=== PATIENT | female | born 1940 | race Asian ===

== ENCOUNTER 2021-10-13 14:15 | Outpatient (REF) | payer MEDICARE, MEDICAID, SELFPAY ==
[2021-10-13 14:17] LABS: Urine Cytology See Pathology rpt
== END 2021-10-13 14:16 | disposition home or self-care (01) ==
LOC: HO.LNP 14:15
PROVIDERS: Visit Provider Internal Medicine
DX: R31.9 Hematuria, unspecified (principal)
CPT/HCPCS: 88112

== ENCOUNTER 2021-10-14 07:28 | Outpatient (REF) | payer MEDICARE, MEDICAID, SELFPAY ==
[2021-10-14 11:17] LABS: MANUAL DIFF FLAG NO
[2021-10-14 11:32] LABS: Basophils Percent Auto 0.6 % (0-2); Eosinophils Absolute Auto 0.1 X10*3/uL (0.0-0.4); Eosinophils Percent Auto 3.6 % (0-4); Hematocrit 35.4 % (37.0-47.0); Hemoglobin 11.5 g/dl (12.0-16.0); Lymphocytes Absolute Auto 1.6 X10*3/uL (1.2-4.9); Lymphocytes Percent Auto 45.3 % (20-40); Mean Corpuscular HGB Conc 32.5 g/dl (31.0-35.0); Mean Corpuscular Hemoglobin 29.3 pg (27.0-33.0); Mean Corpuscular Volume 90.3 fL (80.0-98.0); Mean Platelet Volume 8.5 fL (9.4-12.3); Monocytes Absolute Auto 0.6 X10*3/uL (0.1-1.2); Monocytes Percent Auto 17.6 % (2-11); Neutrophils Absolute Auto 1.2 x10*3/uL (2.0-8.3); Neutrophils Percent Auto 32.9 % (45-73); Platelet Count 263 X10*3/uL (160-400); Red Blood Count 3.92 X10*6/uL (4.20-5.50); Red Cell Distribution Width 13.5 % (11.0-16.0); White Blood Count 3.6 X10*3/uL (4.8-10.8)
[2021-10-14 11:43] LABS: Alanine Aminotransferase 9 U/L (0-31); Albumin Level 4.2 g/dL (3.5-5.0); Alkaline Phosphatase 70 U/L (39-117); Anion Gap 12 (12-20); Aspartate Amino Transferase 19 U/L (5-31); Bilirubin Total 0.6 mg/dL (0.0-1.0); Blood Urea Nitrogen 11 mg/dL (9-16); Calcium 9.6 mg/dL (8.4-10.2); Carbon Dioxide 27 mmol/L (22-29); Chloride 98 mmol/L (96-108); Estimated Glomerular Filt Rate > 60; Glucose Fasting 96 mg/dL (60-99); Potassium 3.8 mmol/L (3.3-5.1); Sodium 133 mmol/L (135-145); Total Protein 7.2 g/dL (6.5-8.0)
== END 2021-10-14 07:29 | disposition home or self-care (01) ==
LOC: HO.HMGCLDS 07:28
PROVIDERS: PCP Internal Medicine; Visit Provider Internal Medicine
DX: R31.9 Hematuria, unspecified (principal)
CPT/HCPCS: 36415; 80053; 85025

== ENCOUNTER → 2022-03-30 14:34 | Outpatient (BNVA) | payer MEDICARE, MEDICAID, SELFPAY | PROVIDERS: PCP Internal Medicine; Referring Provider Internal Medicine; Visit Provider Internal Medicine Cardiovascular Disease | DX: R00.2 Palpitations (principal) | CPT/HCPCS: 93005; 99202 ==

== ENCOUNTER → 2022-06-01 11:04 | Outpatient (REF) | payer MEDICARE, MEDICAID, SELFPAY ==
--- NOTE | 2022-06-01 11:12 | HM_ITS ---
* Total monitoring time 6 days and 23 hours. * Underlying rhythm is sinus. Average rate 78/Min. Range 64 to 117/Min. * No atrial fibrillation or flutter or AV blocks or pauses. * Frequent supraventricular ectopy. Maupin of 1.7%. * Extremely rare ventricular ectopy with minimal burden. * No patient events. MTDD
== END ==
LOC: HO.CARD 11:04
PROVIDERS: PCP Internal Medicine; Visit Provider Internal Medicine Cardiovascular Disease
DX: R00.2 Palpitations (principal)
CPT/HCPCS: 93242

== ENCOUNTER → 2022-07-07 12:52 | Outpatient (REF) | payer OTHER, SELFPAY ==
--- NOTE | 2022-07-07 12:55 | CA_ITS ---
Transthoracic Echocardiogram Patient (Last, First, Middle): Claudia Mario, Gender: Female Date of : 1940 Age: 81 Procedure Date: 07/07/2022 Procedure Type: Transthoracic Echocardiogram Location: OP Height: 152.4 cm Weight: 52.16 kg BSA: 1.48 m2 Heart Rate: 87 bpm BP: 132 / 78 mmHg Front End Alignment Specialist: AMADO Referring MD: Alfred Paz MD Symptoms: R00.2 - Palpitations Study Quality: Adequate ECG Rhythm: Sinus Conclusions: - The left ventricular systolic function is normal. The calculated ejection fraction is 65% by biplane method. - No obvious valvular pathology seen on this study. Findings Left Ventricle Normal left ventricular cavity size. There is normal left ventricular wall thickness. The left ventricular systolic function is normal. The calculated ejection fraction is 65% by biplane method. There is no evidence of regional wall motion abnormalities. Diastolic function is normal for age. Right Ventricle Normal right ventricular cavity size and systolic function. Atria Both atria are normal in size. Aortic Valve There is a normal trileaflet aortic valve. There is mild thickening of the aortic valve. There is no aortic valve stenosis. Trace to mild aortic regurgitation. Mitral Valve There is mild anterior mitral leaflet thickening. There is no mitral valve regurgitation. There is no mitral valve stenosis. Pulmonic Valve The pulmonic valve is likely normal. Tricuspid Valve There is trace tricuspid valve regurgitation. There is no evidence of pulmonary hypertension. Great Vessels The asc aorta is normal in size. Venous The inferior vena cava is normal in size and collapses greater than 50% with inspiration. Pericardium/Pleural There is no evidence of pericardial effusion. Prior Study Comparison No prior study available for comparison. Recommendations, Care & Conclusions No obvious valvular pathology seen on this study. Measurements 2D Linear Measurements IVSd: 1.08 0.6-0.9/0.6-1.0 cm LVIDd: 3.91 3.9-5.3/4.2-5.9 cm LVIDd Index: 2.64 2.4-3.2/2.2-3.1 cm/m2 LVIDs: 2.55 2.0-3.6 cm LVPWd: 0.97 0.7-1.1 cm LA Diam: 2.70 2.7-3.8/3.0-4.0 cm LAIDs Index: 1.82 1.5-2.3 cm/m2 LV Mass: 158.45 67-162/88-224 g LV Mass Index: 107.06 43-95/49-115 g/m2 LVOT Diam: 2.00 3.0+(-)1.3 cm 2D Systolic Function EF 4C: 61.70 >55% EF 2C: 65.40 >55% EF BiP: 64.80 >55% Mitral Valve MV Pk E: 0.66 MV PK A: 0.92 MV Decel Time: 219.00 E/A: 0.70 E'Lateral: 5.77 E'Medial: 5.22 E/E' Med: 12.70 E/E' Lat: 11.50 PHT: 64.00 MVA PHT: 3.44 Decel Falls: 3.01 Aortic Valve AoV Pk Denilson: 1.86 AoV Mn Denilson: 1.23 AoV VTI: 0.35 AoV Pk Grad: 14.00 Aov Mn Grad: 7.00 AASHISH Cont.VTI: 2.77 AI Pk Denilson: 4.51 AI Falls: 3.23 AI Alias Denilson: 0.41 ERO - PISA: 9.00 LVOT LVOT Pk Denilson: 1.42 LVOT Mn Denilson: 0.97 LVOT VTI: 0.30 LVOT Pk Grad: 8.00 LVOT Mn Grad: 4.00 LVOT Diam: 2.00 LVOT Area: 3.14 Diastolic Function MV Pk E: 0.66 MV Pk A: 0.92 E/A: 0.70 E'Medial: 5.22 E/E' Med: 12.70 E' Laterial: 5.77 E/E' Lat: 11.50 Right Ventricle TAPSE (mm): 20.00 TVS' Denilson: 13.20 Tricuspid Valve RA Press: 3.00 Great Vessels Aorta Sinus of Valsalva: 2.70 2.0-3.5 cm Ao Asc: 3.50 2.1-3.4 cm Pulmonary Valve PV Pk Denilson: 1.39 Peak PV Grad: 8.00 Updated in Other Vendor System with Status of Final Kelvin Carty MD electronically signed on 07/08/2022 10:35:13 AM with status of Final
== END ==
LOC: HO.CARD 12:52
PROVIDERS: PCP Internal Medicine; Visit Provider Internal Medicine Cardiovascular Disease
DX: R00.2 Palpitations (principal)
CPT/HCPCS: 93306

== ENCOUNTER 2024-05-18 13:30 | Outpatient (AMB) | payer OTHER, SELFPAY ==
--- NOTE | 2024-05-18 13:36 | MHC.PC.OV ---
Vital Signs 05/18/24 13:40 Height 5 ft 4 in Weight 128 lb BMI 22.0 BP 128/82 Blood Pressure Location Lt brachial Position Sitting Pulse 82 Pulse Source Pulse Oximeter Pulse Oximetry (%) 97 Oxygen Delivery Method Room Air Intake Visit Reasons: [facility] fx Rt shoulder request PT Intake Note: Pt is here today f/u [facility] Rt shoulder fx back in February needs orders Accompanied by: Daughter (Manny) Allergies amoxicillin Adverse Reaction (Verified 05/18/24 13:46) Rash aspirin Adverse Reaction (Verified 05/18/24 13:46) Stomach Upset Medication List - Last Reconciled 05/18/24 by Cherry Casey MD cholecalciferol (vitamin D3) 25 mcg PO DAILY ferrous sulfate 324 mg PO DAILY multivitamin 1 tab PO DAILY omega-3 fatty acids 500 mg PO DAILY omeprazole 40 mg PO DAILY Tobacco use date assessed: 05/18/24 Fall risk assessment: 1 Fall in past year Last assessed Fall Risk: 05/18/24 Dental Screening Dental Screen Date: 05/18/24 Did you have a dental visit in the last 12 months?: No Did you have a dental problem in the last 6 months where you did not have access to dental care?: No Was dental information given to patient?: Patient declined HPI [facility] f[facility] Rt shoulder request PT HPI Details 83-year-old lady here today still complaining of pain when lifting right shoulder more than 90 degrees in all direction. She had a fall hitting her shoulder on the door last February 2024 and sustained a closed fracture of surgical neck of right humerus. 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 Requesting referral for physical therapy, but would like to have it in home as patient has been having difficulty with ambulation, and getting in and out of her house with steps to maneuver, is extremely hard for patient and daughter, who has been assisting her. [facility] Medical History (Updated 05/18/24 @ 14:01 by Cherry Casey MD) Gait instability Fracture of surgical neck of right humerus Endometrial cancer Atypical nevus of abdominal wall Intermittent palpitations Heartburn Hematuria Surgical History No pertinent past surgical history Social History Housing: Other Housing Other:: lives with son Patient Tobacco Use Status: Never used Tobacco e-Cigarette/Vaping Use: Never Used service: No Current occupational status: retired Cognitive needs: No Hearing needs: No Vision needs: Yes Questionnaire PHQ-9 Over the last 2 weeks, how often have you been bothered by any of the following problems? 1. Little interest or pleasure in doing things: not at all 2. Feeling down, depressed, or hopeless: not at all 3. Trouble falling or staying asleep, or sleeping too much: not at all 4. Feeling tired or having little energy: not at all 5. Poor appetite or overeating: not at all 6. Feeling bad about yourself - or that you are a failure or have let yourself or your family down: not at all 7. Trouble concentrating on things, such as reading the newspaper or watching television: not at all 8. Moving or speaking so slowly that other people could have noticed. Or the opposite - being so fidgety or restless that you have been moving around a lot more than usual: not at all 9. Thoughts that you would be better off or of hurting yourself in some way: not at all Total score: 0 Depression Screening Interpretation: Negative Depression Screening Done: Yes 19907 - PHQ-9 Billing: Yes Source: Developed by Drs. Christopher Astudillo, Annette Osorio, Naveed Marquez and colleagues, with an educational angela from [employer]. Thrive Questionnaire Date Thrive assessed: 05/18/24 I am a: Patient What is your living situation today?: I have a steady place to live Within the past 12 months, did the food you bought not last and you didn't have the money to get more?: I choose not to answer this question Within the past 12 months, did you worry whether your food would run out before you got money to buy more?: Never true Do you have trouble paying for medicines?: No Do you have trouble getting transportation to medical appointments?: No Do you have trouble paying your heating and electricity bill?: No Do you have trouble taking care of your child, family member or friend?: No Do you have trouble with day-to-day activities such as bathing, preparing meals, shopping, managing finances, etc.?: No Are you currently unemployed and looking for a job?: No Are you interested in more education?: No Please select the resources that you would like help with: Housing/Care Home Currently or been in a relationship where the following occur: No concerns reported THRIVE Score: 0 AUDIT C Alcohol Use Questionnaire (AUDIT-C) 1. How often do you have a drink containing alcohol?: Never Total Score: 0 CALVIN-7 AMB Questionnaire CALVIN-7 Date CALVIN - 7 assessed: 05/18/24 Feeling nervous, anxious, or on edge: 0 = Not at all Not being able to stop or control worryin = Not at all Worrying too much about different things: 0 = Not at all Trouble relaxin = Not at all Being so restless that it is hard to sit still: 0 = Not at all Becoming easily annoyed or irritable: 0 = Not at all Feeling afraid as if something awful might happen: 0 = Not at all Total CALVIN-7 score (0-4 normal; 5-9 mild; 10-14 moderate; 15-21 severe): 0 Source: Developed by Drs. Christopher Astudillo, Anntete Osorio, Naveed Marquez and colleagues, with an educational angela from [employer]. Review of Systems Const Reports no additional complaints and Denies headache(s) ENT Denies headache(s) and Reports disequilibrium Card Reports no additional complaints Resp Reports no additional complaints Reports no additional complaints Musc Reports as per HPI Skin/Breast Denies lesions and Denies rash Neuro Denies headache(s) and Reports disequilibrium Physical exam (Primary Care) Vital Signs: Last Vital Signs Pulse 82 05/18/24 13:40 BP 128/82 05/18/24 13:40 Pulse Ox 97 05/18/24 13:40 Oxygen Delivery Method Room Air 05/18/24 13:40 BMI result Body Mass Index 22.0 Tobacco/Smoking Status: Tobacco use Status Tobacco use date assessed 05/18/24 05/18/24 13:46 Patient Tobacco Use Status Never used Tobacco 05/18/24 13:38 e-Cigarette/Vaping Use Never Used 08/01/24 13:38 PHQ-9: PHQ-9 Score PHQ-9: Total score 0 05/18/24 14:21 Depression Screening Interpretation: Negative Thrive Assessment: Date of Thrive Assessment Date Thrive assessed 05/18/24 05/18/24 13:46 Currently or been in a relationship where the following occur: No concerns reported Const Other: Patient currently on a wheelchair accompanied by daughter General: comfortable, no acute distress, alert and awake Nutritional Appearance: average body habitus HENOR Head: Yes normocephalic and Yes atraumatic Ears: external ears normal and TM's normal bilaterally Mouth: Normal oral and palatal mucosa present, oropharynx normal and moist mucous membranes Eyes General: appearance normal, both eyes and all related structures Neck Neck: Yes no lymphadenopathy and Yes supple Thyroid: Thyroid normal Resp Auscultation: clear to auscultation bilaterally Cardio Other: S1-S2 present regular rate and rhythm GI Palpation (GI): Soft to palpation, nontender, no guarding and no masses Skin General skin exam: no rashes or lesions noted Extrem Other: Decreased range of motion of right shoulder joint, able to only abduct right arm approximately 90 degrees, slight tenderness on palpation over right AC joint, no mass or tenderness on palpation over right upper arm Assessment and Plan Assessment & Plan (1) Fracture of surgical neck of right humerus: Code(s): S42.211A - Unspecified displaced fracture of surgical neck of right humerus, initial encounter for closed fracture Plan: Referred to [facility] for evaluation for home OT/PT after recent fall where she sustained displaced fracture of surgical neck of right humerus, still with ongoing pain and decreased range of motion her right shoulder and upper arm (2) Gait instability: Code(s): R26.81 - Unsteadiness on feet Plan: Referred to [facility] to see if patient will qualify for home OT, as patient has been having a difficult time getting out of her house due to gait instability and weakness Orders: [facility]errals [facility] Referral R26.81 - Unsteadiness on feet, S42.211A - Unspecified displaced fracture of surgical neck of right humerus, initial encounter for closed fracture, S42.351D - Displaced comminuted fracture of shaft of humerus, right arm, subsequent encounter for fracture with routine healing Coding Level of Care Code Est Pt Level 4 (79254) Diagnoses Fracture of surgical neck of right humerus S42.211A Gait instability R26.81
[2024-05-18 13:40] VITALS: BP 128/82; PULSE 82; O2SAT 97; BMI 22.0
== END 2024-05-18 14:54 | disposition home or self-care (01) ==
PROVIDERS: PCP Internal Medicine; Visit Provider Internal Medicine
DX: S42.211A Unspecified displaced fracture of surgical neck of right humerus, initial encounter for closed fracture (principal); R26.81 Unsteadiness on feet
CPT/HCPCS: 99214

== ENCOUNTER 2024-11-21 12:53 | Outpatient (AMB) | payer OTHER, SELFPAY ==
[2024-11-21 13:06] VITALS: BP 100/60; PULSE 90; TEMP 36.7; O2SAT 99; BMI 21.5
--- NOTE | 2024-11-21 13:06 | MHC.PC.OV ---
Vital Signs 11/21/24 13:06 Height 5 ft 4 in Weight 125 lb BMI 21.5 BP 100/60 Blood Pressure Location Rt brachial Position Sitting Pulse 90 Pulse Source Pulse Oximeter Temp 98.0 F Temp Source Oral Pulse Oximetry (%) 99 Oxygen Delivery Method Room Air Intake Visit Reasons: f/u constipation Intake Note: Pt is here today to f/u constipation Allergies amoxicillin Adverse Reaction (Verified 11/21/24 13:16) Rash aspirin Adverse Reaction (Verified 11/21/24 13:16) Stomach Upset Medication List - Last Reconciled 11/21/24 by Cherry Casey MD cholecalciferol (vitamin D3) 25 mcg PO DAILY ferrous sulfate 324 mg PO DAILY multivitamin 1 tab PO DAILY omega-3 fatty acids 500 mg PO DAILY omeprazole 40 mg PO DAILY Tobacco use date assessed: 11/21/24 Fall risk assessment: 1 Fall in past year Last assessed Fall Risk: 11/21/24 Dental Screening Dental Screen Date: 11/21/24 Did you have a dental visit in the last 12 months?: No Did you have a dental problem in the last 6 months where you did not have access to dental care?: No Was dental information given to patient?: No HPI f/u constipation HPI Details - The patient is an 84-year-old femaleHere today accompanied by daughter complaining of constipation and nutritional concerns. - Persistent constipation has been an issue since a hospital admission. The issue is complicated by limited mobility and insufficiency of dietary fiber and liquids. - Limited dietary intake consists mostly of soups and occasional solid foods like rice porridge. - There is impaired mobility due to fatigue, and attempts to remain active are hindered by the patient's overall weakness. - Iron supplementation, required due to cancer or other reasons, is exacerbating constipation. - The patient experiences nausea predominantly during afternoon and evening, interfering with meal consumption. - The patient has been receiving hormonal therapy for endometrial cancer. - The patient experiences limited mobility and relies on a walker but is often too fatigued to move independently. [facility] Medical History (Updated 11/21/24 @ 13:33 by Cherry Casey MD) Constipation Gait instability Fracture of surgical neck of right humerus Endometrial cancer Atypical nevus of abdominal wall Intermittent palpitations Heartburn Hematuria Surgical History No pertinent past surgical history Social History Housing: Other Housing Other:: lives with son Patient Tobacco Use Status: Never used Tobacco e-Cigarette/Vaping Use: Never Used service: No Current occupational status: retired Cognitive needs: No Hearing needs: No Vision needs: Yes Questionnaire PHQ-9 Over the last 2 weeks, how often have you been bothered by any of the following problems? 1. Little interest or pleasure in doing things: not at all 2. Feeling down, depressed, or hopeless: several days 3. Trouble falling or staying asleep, or sleeping too much: several days 4. Feeling tired or having little energy: more than half the days 5. Poor appetite or overeating: nearly every day 6. Feeling bad about yourself - or that you are a failure or have let yourself or your family down: not at all 7. Trouble concentrating on things, such as reading the newspaper or watching television: not at all 8. Moving or speaking so slowly that other people could have noticed. Or the opposite - being so fidgety or restless that you have been moving around a lot more than usual: not at all 9. Thoughts that you would be better off or of hurting yourself in some way: not at all Total score: 7 Depression Screening Interpretation: Negative Depression Screening Done: Yes Source: Developed by Drs. Chrisotpher Astudillo, Annette Osorio, Naveed Marquez and colleagues, with an educational angela from [employer]. Thrive Questionnaire Date Thrive assessed: 05/18/24 I am a: Parent/Caregiver What is your living situation today?: I have a steady place to live Within the past 12 months, did the food you bought not last and you didn't have the money to get more?: I choose not to answer this question Within the past 12 months, did you worry whether your food would run out before you got money to buy more?: Never true Do you have trouble paying for medicines?: No Do you have trouble getting transportation to medical appointments?: No Do you have trouble paying your heating and electricity bill?: No Do you have trouble taking care of your child, family member or friend?: No Do you have trouble with day-to-day activities such as bathing, preparing meals, shopping, managing finances, etc.?: No Are you currently unemployed and looking for a job?: No Are you interested in more education?: No Please select the resources that you would like help with: None Currently or been in a relationship where the following occur: No concerns reported THRIVE Score: 0 AUDIT C Alcohol Use Questionnaire (AUDIT-C) 1. How often do you have a drink containing alcohol?: Never Total Score: 0 CALVIN-7 AMB Questionnaire CALVIN-7 Date CALVIN - 7 assessed: 05/18/24 Feeling nervous, anxious, or on edge: 0 = Not at all Not being able to stop or control worryin = Not at all Worrying too much about different things: 0 = Not at all Trouble relaxin = Not at all Being so restless that it is hard to sit still: 0 = Not at all Becoming easily annoyed or irritable: 0 = Not at all Feeling afraid as if something awful might happen: 0 = Not at all Total CALVIN-7 score (0-4 normal; 5-9 mild; 10-14 moderate; 15-21 severe): 0 Source: Developed by Drs. Christopher Astudillo, Annette Osorio, Naveed Marquez and colleagues, with an educational angela from [employer]. Review of Systems Const All systems reviewed & are unremarkable except as noted in HPI and below Physical exam (Primary Care) Vital Signs: Last Vital Signs Temp 98.0 F 11/21/24 13:06 Pulse 90 11/21/24 13:06 BP 100/60 11/21/24 13:06 Pulse Ox 99 11/21/24 13:06 Oxygen Delivery Method Room Air 11/21/24 13:06 BMI result Body Mass Index 21.5 Tobacco/Smoking Status: Tobacco use Status Tobacco use date assessed 11/21/24 11/21/24 13:12 Patient Tobacco Use Status Never used Tobacco 11/21/24 13:07 e-Cigarette/Vaping Use Never Used 11/21/24 13:07 Depression Screening Interpretation: Negative Thrive Assessment: Date of Thrive Assessment Date Thrive assessed 05/18/24 11/21/24 13:07 Currently or been in a relationship where the following occur: No concerns reported Const Other: Patient currently on a wheelchair accompanied by daughter General: comfortable, no acute distress, alert and awake Nutritional Appearance: average body habitus [facility] Head: Yes normocephalic and Yes atraumatic Mouth: Normal oral and palatal mucosa present, oropharynx normal and moist mucous membranes Eyes General: appearance normal, both eyes and all related structures Neck Neck: Yes no lymphadenopathy and Yes supple Thyroid: Thyroid normal Resp Auscultation: clear to auscultation bilaterally Cardio Other: S1-S2 present regular rate and rhythm GI Palpation (GI): Soft to palpation, nontender, no guarding and no masses Back/Spine/Pelvis Other: POSITIVE KYPHOSIS Back: No back tenderness Skin General skin exam: no rashes or lesions noted Extrem Other: Decreased range of motion of right shoulder joint, able to only abduct right arm approximately 90 degrees, slight tenderness on palpation over right AC joint, no mass or tenderness on palpation over right upper arm Coding Level of Care Code Est Pt Level 4 (66423) Complex EM visit Add On G2211 Diagnoses Constipation K59.00 Endometrial cancer C54.1 Assessment & Plan Assessment & Plan (1) Constipation: Code(s): K59.00 - Constipation, unspecified Category: Medical Plan: Has already tried MiraLax and [id number] stool softeners which affords no improvement. Will try her on lactulose 10 g per 15 mL, to give 15 mL or 1 tbsp once a day as needed if no bowel movement after 3 days. Increase fluids, encouraged patient to be more active , to move around, return to clinic if no improvement of symptoms (2) Endometrial cancer: Comment: Followed by Dr. Kayli Solorio at [facility] oncology Code(s): C54.1 - Malignant neoplasm of endometrium Category: Medical Plan: CURRENTLY FOLLOWED AT [facility] Medications: New lactulose 10 grams (15 mL) PO DAILY PRN 3,785 mL 0RF constipation
--- OUTSIDE RECORDS SUMMARY | 2024-11-21 13:17 | XMS_ITS | Continuity of Care Document ---
Author Organization [facility] ter Address [address] [place] [id number]- Care Team Providers [employer] Sales Representative Name Role Phone Azam [facility] ( [phone] [place] [facility] [place] [id number] Date(s): 11/01/24 - 11/02/[address] [address]- Encounter Diagnosis Constipation(Final) - 11/02/24 Vomiting(Final) - 11/02/24 Gastroenteritis(Final) - 11/02/24 Discharge Disposition: A-D/C Home Attending Physician: Brigitte Victoria DO Admitting Physician: Brigitte Victoria DO Referring Physician: Not on Staff, Referring MD Encounter Type: Disch ES Allergies, Adverse Reactions, Alerts Substance Criticality Severity Reaction Reaction Severity Status aspirin High criticality Severe GI upset/st omach issues Active penicillins High criticality Severe severe rash Active Immunizations Given and Recorded Vaccine Date Status Refusal Reason SARS-CoV-2 (COVID-19) mRNA BNT-162b2 vac 10/20/21 Recorded Influenza Virus Vaccine (oldterm) 08/02/21 Recorde d Influenza Virus Vaccine (oldterm) 08/17/20 Recorde d tetanus/diphtheria/pertussis, acel(Tdap) 1 08/05/18 Given pneumococcal 13-valent vaccine 08/05/18 Given influenza virus vaccine, inactivated 2 08/05/18 Gi breann influenza virus vaccine, inactivated 09/01/17 Give n pneumococcal 23-valent vaccine 01/18/11 Given 1Result Comment: RIGHT LOWER DELTOID 2Result Comment: [facility] [id number] Problem List Condition Confirmation Course Effective Dates Status H ealth Status Informant Abdominal pain Confirmed Active Erosive gastritis Confirmed Active Anemia Confirmed Active Shortness of breath Confirmed Active Hyperlipidemia Confirmed Active Endometrial cancer Confirmed Active Results Radiology Reports * Exam Date Time Procedure Performing Provider Status 11/01/24 5:[address] Abd/Pelvis W/ IV Contrast Only Nataly Tilley; Auth (Verified) Notes: (CT Abd/Pelvis W/ IV Contrast Only) Reason For Exam: LLQ abdominal pain;Other: RESULT: CT Abd/Pelvis W/ IV Contrast Only CT Abd/Pelvis W/ IV Contrast Only Hx of Present Illness: Patient coming from home with her PCT, patient reports abdominal pain since last night with nausea and vomiting since 0800hrs this morning.; Reason: Other:; LLQ abdominal pain;Clinical Question(s): Diverticulitis; Order Comment: TECHNIQUE: Spiral CT through the abdomen and pelvis with IV contrast formatted in 3 planes. 75 cc of Isovue 300 was administered intravenously. This study was performed without oral contrast. Weight-based protocol using automatic tube modulation was used to optimize exposure parameters. COMPARISON: Prior CT of the abdomen and pelvis dated May 21, 2022. FINDINGS: Hydraulic Specialist View Findings, Lines and Tubes: None. Visualized Chest: Motion degraded evaluation of the lung bases with atelectasis but no pleural effusion. Small to moderate pericardial effusion is similar to minimally increased from 2021. Diaphragm: Normal. Liver: Normal. Gallbladder: Surgically absent. Bile ducts: No biliary ductal dilation. Spleen: Normal. Pancreas: Normal. Adrenal glands: No suspicious abnormality. Kidneys and ureters: No hydronephrosis, stones, or suspicious masses. Bladder: Underdistended but otherwise unremarkable. Reproductive organs: Soft tissue attenuation with lobulated contour at the uterine fundus that indents the endometrium, not definitely seen on the prior study (for example sagittal image 70 and axialimage 93). No suspicious adnexal mass. Stomach, small bowel, and large bowel: Underdistended stomach. Fluid-filled small bowel without evidence of tense distention to suggest obstruction. Proximal colon is fluid-filled without significantwall thickening. Sigmoid colon is tortuous and redundant, and there is a large formed stool ball inthe distal rectum measuring up to 7.9 cm (series 601 image 110), without significant surrounding inflammation. Appendix: Normal. Peritoneum and retroperitoneum: No ascites or pneumoperitoneum. No omental or mesenteric lesions. Lymph nodes: Few mildly prominent lymph nodes are noted, for example left para- aortic lymph node measuring up to 0.9 cm in short axis (series 601 image 63), and a left iliac chain/pelvic sidewall lymph node measuring 1.1 cm (image 98). Blood vessels: Moderate to severe atherosclerotic plaque with tortuous aorta without evidence of ectasia or aneurysm. IVC filter noted. No evidence of venous thrombosis. Abdominal and pelvic wall: Mild soft tissue stranding in the ischial subcutaneous fat without fluidcollection or ectopic gas. Bones: No acute abnormality. Demineralized osseous structures with mild degenerative changes in thespine. Trace retrolisthesis of L3 on L4. No acute osseous abnormality. IMPRESSION: 1. Fluid-filled small and large bowel loops without significant wall thickening, likely a nonspecific diarrheal illness. 2. Large formed stool ball in the rectum, which may indicate impaction. No wall thickening or surrounding inflammation to suggest active stercoral colitis at this time. 3. Prominent soft tissue at the uterine fundus, changed in appearance from May 2022 and suspicious for progressive malignancy. Nonemergent pelvic ultrasound or MRI can considered for further characterization, if the results would alter clinical management. A few mildly prominent left periaortic and left iliac chain lymph nodes may be reactive or neoplastic. 4. Mild ischial fat stranding, nonspecific but possibly indicating decubitus pressure-related changes. No fluid collection or osseous abnormality. Correlation with physical examination is recommended. 5. Small to moderate pericardial effusion, similar to minimally increased from 2021. WSN: [id number] Ordering Physician: Rosendo Monteiro Dictated By: Marv Ambrose MD Dictated Date/Time: 11/01/24 5:46 pm Reviewed By: Marv Ambrose MD Signed By: Marv Ambrose MD Signed Date/Time: 11/01/24 5:46 pm Transcribed By: RAJENDRA Transcribed Date/Time: 11/01/24 5:32 pm Vital Signs Most recent to oldest [Reference Range]: 1 2 3 Oxygen Saturation [94-100 %] 97 % (11/02/24 5:30 AM) 96 % (11/02/24 3:14 AM) 96 % (11/01/24 7:02 PM) Pulse Rate [55-90 bpm] 92 bpm *H* (11/02/24 5:30 AM) 93 bpm *H* (11/02/24 3:14 AM) 86 bpm (11/01/24 7:02 PM) Blood Pressure [90-138/55-84 mm Hg] 113/53mm Hg (11/02/24 5:30 AM) 121/89mm Hg (11/02/24 3:14 AM) 137/69mm Hg (11/01/24 7:02 PM) Respiratory Rate [16-30 br/min] 18 br/min (11/02/24 5:30 AM) 18 br/min (11/02/24 3:14 AM) 18 br/min (11/01/24 7:02 PM) Temperature [96.8-100.4 DegF] 97.7 DegF (11/02/24 5:30 AM) 97.9 DegF (11/01/24 1:08 PM) Mode of Delivery (Oxygen) Room air (11/02/24 5:30 AM) Room air (11/02/24 3:14 AM) Room air (11/01/24 7:02 PM) Blood pressure sites Arm, left (11/02/24 5:30 AM) Arm, left (11/02/24 3:14 AM) Arm, left (11/01/24 7:02 PM) Temperature Route Oral (11/02/24 5:30 AM) Oral (11/01/24 1:08 PM) Social History Social History Type Response Smoking Status Never (less than 100 in lifetime) entered on: 03/04/20 Sex Sex Representation Female (finding) EKG study * Event Display: ECG 12-Lead Authored Date: Please click on pdf link to open report * Event Display: ECG 12-Lead Authored Date: Ventricular Rate: 91 BPM Atrial Rate: 91 BPM P-R Interval: 146 ms QRS Duration: 56 ms Q-T Interval: 362 ms QTC Calculation(Bazett): 445 ms P [place]: 34 degrees R [place]: 21 degrees T [place]: 44 degrees Normal sinus rhythm Normal ECG When compared with ECG of 23-Oct-2018 20:26, ST elevation now present in Inferior leads Confirmed by MAULIK GUILLEN MD ([id number]) on 11/01/2024 4:41:20 PM [place]: MAULIK GUILLEN MD Patient Care team information Care Team Personnel Name: Magdalena Cintron MD Position: [facility] Physician - Primary Care Member Role: PCP Address: [address] [place] [address] [address] [place] [address]- Telecom: Name: Kevin Morgan RN Position: [facility] SN RN Member Role: Primary Care Nurse Name: José Antonio CHRISTY, Rodney Cramer Position: [facility] RN Member Role: Primary Care Nurse Name: Benito Riggins MD Position: [facility] Renal MD Member Role: Lif[employer] Consulting Physician Address: [address] [place] [address] [id number] [facility] [place] [address]- Telecom: Care Team Related Persons Name: AMANDA RYDER Name: CAITY WINSTON Insurance Providers Guarantor name: PORSHA WINSTON Health Plan Information #: 1 Payer: [employer] Member Number: [id number] Policy Number: NA Group Number: NA Health Plan Information #: 2 Payer: [employer] Member Number: [id number] Policy Number: NA Group Number: NA
== END 2024-11-21 14:29 | disposition home or self-care (01) ==
PROVIDERS: PCP Internal Medicine; Visit Provider Internal Medicine
DX: K59.00 Constipation, unspecified (principal); C54.1 Malignant neoplasm of endometrium

== ENCOUNTER → 2024-11-21 12:53 | Outpatient (BNVA) | payer OTHER, SELFPAY | PROVIDERS: PCP Internal Medicine; Visit Provider Internal Medicine ==

== ENCOUNTER 2025-10-03 13:42 | Outpatient (AMB) | payer OTHER, SELFPAY ==
--- NOTE | 2025-10-03 13:43 | AM.OFFVISMDC ---
Intake Vital Signs 10/03/25 13:50 Height 5 ft Weight 123 lb BMI 24.0 BP 130/70 Blood Pressure Location Lt brachial Position Sitting Respiration 15 Pulse 89 Pulse Source Pulse Oximeter Temp 98.2 F Temp Source Oral Pulse Oximetry (%) 99 Oxygen Delivery Method Room Air Intake Visit Reasons: AWV Intake Note: Pt is here today for her AWV Buckle Gluer Required: Yes Buckle Gluer Services: Buckle Gluer Present (Haile) Buckle Gluer Name: Parul Sheldon (tom) Allergies amoxicillin Adverse Reaction (Verified 10/03/25 14:20) Rash aspirin Adverse Reaction (Verified 10/03/25 14:20) Stomach Upset Medication List - Last Reconciled 10/03/25 by Cherry Casey MD acetaminophen (Tylenol Extra Strength) 500 mg PO Q6H PRN cholecalciferol (vitamin D3) 25 mcg PO DAILY ferrous sulfate 324 mg PO DAILY lactulose 10 grams (15 mL) PO DAILY PRN medroxyprogesterone 5 mg PO DAILY multivitamin 1 tab PO DAILY omega-3 fatty acids 500 mg PO DAILY omeprazole 40 mg PO DAILY HPI AWV HPI Details AWV ? 85 year old lady with history of anemia, history of left shoulder fracture seen by [facility], and history endometrial cancer followed at [facility] oncology department, presents for her ? Annual Wellness Visit, initial visit.? She no longer gets mammogram, cervical cancer screening, bone density scan or colonoscopy screening done. Patient declined getting any labs to check for her cholesterol, she did however had a normal fasting glucose done in 2020. She is up-to-date with her flu vaccine, received 07/14/2025 and also received her pneumococcal vaccination. ? Medical / Social History Reviewed? Past Medical History ?Yes . ? [place] of Care / Care Team list updated ?Yes . ? Surgical/Hospitalization History ?Yes . ? Current Medications (including OTC and supplements) ?Yes . ? Family History ?Yes . ? Tobacco Control form ?Yes . ? AUDIT-C (Alcohol use) form ?Yes . ? Illicit drug use in Social History ?Yes . ? Current diagnosis of depression? ?No ? Appropriate PHQ2/PHQ9 completed ?Yes . ? Data entered by ?Net [employer] Developer and reviewed by provider ? Fall Risk ? Fall History? Have you had any falls with injury in the past year? ?No . ? Have you had two or more falls in the past year? ?No . ? Fall Risk Assessment: ?No falls in the past year . ? HRA filled out by the patient, reviewed by Provider and scanned. ?AWV ? Balance? Romberg negative . ? Tandem walk ?unable ? Walk and Turn ?Yes . ? Rise from sit to stand ?Yes . ?Vision? Corrective lens ?yes ? Vision screen ? goes to lens crafters ?Hearing? Whisper test ?negative ?Written Plan?Completed. See Patient Documents.?MOLST and healthcare proxy done [facility] Medical History (Updated 10/03/25 @ 17:24 by Cherry Casey MD) History of heartburn Constipation Gait instability Fracture of surgical neck of right humerus Endometrial cancer Atypical nevus of abdominal wall Intermittent palpitations Heartburn Hematuria Surgical History No pertinent past surgical history Social History Housing: Other Housing Other:: lives with son Patient Tobacco Use Status: Never used Tobacco e-Cigarette/Vaping Use: Never Used service: No Current occupational status: retired Cognitive needs: No Hearing needs: No Vision needs: Yes Questionnaire Medicare Wellness Checkup What is your age?: 80 or older What gender do you identify with?: female During the past 4 weeks, how much have you been bothered by emotional problems such as feeling anxious, depressed, irritable, sad or downhearted, and blue?: extremely During the past 4 weeks, has your physical & emotional health limited your social activities with family, friends, neighbors, or groups?: not at all During the past 4 weeks, how much bodily pain have you generally had?: severe pain During the past 4 weeks, was someone available to help you if you needed & wanted help?: yes, as much as I wanted During the past 4 weeks, what was the hardest physical activity you could do for at least 2 minutes?: very heavy Can you get to places out of walking distance without help? (For eg., can you travel alone on buses, taxis or drive your car?): No Can you go shopping for groceries or clothes without someone's help?: No Can you prepare your own meals?: No Can you do your housework without help?: No Because of any health problems, do you need the help of another person with your personal care needs such as eating, bathing, dressing or getting around the house?: Yes Can you handle your own money without help?: No During the past 4 weeks, how would you rate your health in general?: poor During the past 4 weeks how have things been going for you?: very bad; could hardly be worse Are you having difficulties driving your car?: yes, often Do you always fasten your seat belt when you are in a car?: yes, usually During past 4 weeks, have you been bothered by the following: never: Sexual problems?, sometimes: Falling or dizzy when standing up and Teeth or denture problems? and always: Trouble eating well?, Problems using the telephone? and Tiredness or fatigue? Have you fallen 2 or more times in the past year?: No Are you afraid of falling?: Yes Are you a smoker?: no During the past 4 weeks, how many drinks of wine, beer, or other alcoholic beverages did you have?: no alcohol at all Do you exercise for about 20 minutes 3 or more times a week?: no, I usually do not exercise this much Have you been given information to help with the following?: yes: Keeping track of your medications? and no: Hazards in your house that might hurt you? How often do you have trouble taking medicines the way you have been told to take them?: I always take medicine as prescribed How confident are you that you can control & manage most of your health problems?: not very confident What is your race?: Mini Mental State Exam (MMSE) Orientation What is the (year) (season) (date) (day) (month)?: year (2024), season (Fall), date (Unable to state), day (wednesday) and month () Where are we (state) (county) (town or city) (hospital) (floor)?: state ([place] county (Unable ), town or city ([place]) and hospital/clinic (Unable to say) Score Score: 9 Activity of Daily Living Bathing - sponge bath, tub bath or shower: receives help in bathing only one body part (such as back or leg) Dressing - getting clothes from closets & drawers, including inner/outer garments & fasteners.: gets clothes & gets completely dressed without help Toileting - going to the 'toilet room' for urine/bowel elimination & cleaning self/arranging clothes: receives help going to toilet room, cleaning self or arranging clothes Transfer: moves in & out of bed and chair without help (may use support object) Continence: has occasional 'accidents' Feeding: feeds self without help Total Score: 0 Information obtained from: informant (Daughter) Using telephone: dependent Traveling: dependent Shopping: dependent Preparing meals: dependent Housework: dependent Taking medicine: dependent Managing money: dependent PHQ-9 Over the last 2 weeks, how often have you been bothered by any of the following problems? 1. Little interest or pleasure in doing things: more than half the days 2. Feeling down, depressed, or hopeless: not at all 3. Trouble falling or staying asleep, or sleeping too much: more than half the days 4. Feeling tired or having little energy: nearly every day 5. Poor appetite or overeating: several days 6. Feeling bad about yourself - or that you are a failure or have let yourself or your family down: not at all 7. Trouble concentrating on things, such as reading the newspaper or watching television: nearly every day 8. Moving or speaking so slowly that other people could have noticed. Or the opposite - being so fidgety or restless that you have been moving around a lot more than usual: nearly every day 9. Thoughts that you would be better off or of hurting yourself in some way: not at all Total score: 14 Depression Screening Interpretation: Negative Depression Screening Done: Yes 43207 - PHQ-9 Billing: Yes Source: Developed by Drs. Christopher Astudillo, Annette Osorio, Naveed Marquez and colleagues, with an educational angela from [employer]. Physical Exam Vital Signs: Last Vital Signs Temp 98.2 F 10/03/25 13:50 Pulse 89 10/03/25 13:50 Resp 15 10/03/25 13:50 BP 130/70 10/03/25 13:50 Pulse Ox 99 10/03/25 13:50 Oxygen Delivery Method Room Air 10/03/25 13:50 BMI result Body Mass Index 24.0 Assessment & Plan Assessment & Plan (1) Encounter for annual wellness visit (AWV) in Medicare patient: Code(s): Z00.00 - Encounter for general adult medical examination without abnormal findings Plan: Medical wellness checklist reviewed, discussed with the patient and daughter and updated declined getting any routine screenings, up-to-date with the flu and pneumococcal vaccine (2) Gait instability: Code(s): R26.81 - Unsteadiness on feet Plan: Patient lives with her children, has assistance at times, uses a wheelchair when going out (3) Endometrial cancer: Comment: Followed by Dr. Kayli Solorio at [facility] oncology Code(s): C54.1 - Malignant neoplasm of endometrium Plan: No further treatment offered by her oncologist, per daughter (4) Advance directive discussed with patient: Code(s): Z71.89 - Other specified counseling Plan: Initiated the conversation about Advanced Directives. Advanced Directives help patients prepare for current and future decisions about their medical treatment and place of care. Discussed with patient that it is a process where a patients current condition and prognosis are reviewed, their wishes for information regarding their illness are elicited, and likely medical dilemmas are presented and options discussed. Healthcare proxy form completed today. The form can be amended as needed, reviewed yearly and make changes as needed Quality Reporting (2019) Depression/Bipolar (159/160/161/177) PHQ-9: Total score: 14 Coding Level of Care Code Medicare First (G0438) Diagnoses Encounter for annual wellness visit (AWV) in Medicare patient Z00.00 Gait instability R26.81 Endometrial cancer C54.1 Advance directive discussed with patient Z71.89 CPT Codes Advance Care Planning - Time spent: 16-45 minutes ([id number]) Additional Codes PHQ-9 - 98279 - PHQ-9 Billing: Yes ([id number]) Advance Care Planning Advance Care Planning discussion: Completed/Scanned Date of discussion: 10/03/25 Forms completed: Health Care Proxy and MOLST (Done on previous visits) Time spent: 16-45 minutes Actual minutes spent: 3
[2025-10-03 13:50] VITALS: BP 130/70; PULSE 89; RESP 15; TEMP 36.8; O2SAT 99; BMI 24.0
== END 2025-10-03 14:51 | disposition home or self-care (01) ==
LOC: HO.HMCC 13:43
PROVIDERS: PCP Internal Medicine; Visit Provider Internal Medicine
DX: Z00.00 Encounter for general adult medical examination without abnormal findings (principal); R26.81 Unsteadiness on feet; C54.1 Malignant neoplasm of endometrium; Z71.89 Other specified counseling

== ENCOUNTER → 2025-10-03 13:42 | Outpatient (BNVA) | payer OTHER, SELFPAY | PROVIDERS: PCP Internal Medicine; Visit Provider Internal Medicine | DX: Z00.00 Encounter for general adult medical examination without abnormal findings (principal); R26.81 Unsteadiness on feet; C54.1 Malignant neoplasm of endometrium; Z71.89 Other specified counseling | CPT/HCPCS: 96127 ==